=== PATIENT | female | born 1950 | race African-American/Black ===

== ENCOUNTER 2019-04-18 20:00 | Inpatient (IN) | payer MEDICARE, MEDICAID ==
--- NOTE | 2019-04-18 20:39 | RAD ---
EXAM: Chest one view: HISTORY: Chest pain COMPARISON: None FINDINGS: Mild increased bronchovascular markings bilaterally. Heart size: Within normal limits. Lungs: Clear of acute process. No evidence for pneumonia, pleural effusion, acute edema, or pneumothorax, or other significant acute process. IMPRESSION: No significant acute intrathoracic disease.
[2019-04-18 20:59] LABS: #Eosinphils 0.3 thou/uL (0.0-0.7); #Lymphocytes 1.5 thou/uL (1.20-3.40); #Monocytes 0.6 thou/uL (0.11-0.59); #Neutrophils 5.5 thou/uL (1.40-6.50); %Basophils 0.4 % (0.0-1.0); %Eosinophils 3.8 % (0.0-10.0); %Lymphocytes 18.6 % (21.0-51.0); %Monocytes 7.6 % (0.0-10.0); %Neutrophils 69.6 % (42.0-75.0); Hemoglobin 12.3 g/dL (12.0-16.0); Mean Corpuscular HGB CONC 31.3 g/dL (32.0-36.0); Mean Corpuscular Hemoglobin 25.3 pg (27.0-31.0); Platelet Count 247 thou/uL (130-400); RBC Distribution Width 15.9 % (11.5-14.5); Red Blood Cell (RBC) Count 4.86 mill/uL (4.20-5.40); White Blood Cell (WBC) Count 7.8 thou/uL (4.8-10.8)
[2019-04-18] MEDS ORDERED: Acetaminophen 325 MG TAB PO PRN (23:34)
[2019-04-18] MEDS ORDERED: Ondansetron PF 4 MG/2 ML Vial IVP PRN (23:34)
[2019-04-18] MEDS ORDERED: Ondansetron ODT 4 MG TAB SL PRN (23:34)
[2019-04-19] VITALS: BMI 24.3
[2019-04-19 02:29] LABS: Troponin I Less than 0.010 ng/mL (< 0.028)
[2019-04-19] MEDS ORDERED: Acetaminophen 650 MG Suppository PR PRN (03:05)
[2019-04-19] MEDS ORDERED: Lidocaine 2% Viscous Solution 10 ML, Aluminum & Magnesium Hydroxide 30 ML SSW SCH (03:45)
--- NOTE | 2019-04-19 04:24 | HP ---
CHIEF COMPLAINT: Epigastric pain. HISTORY OF PRESENT ILLNESS: Ms. Gee is a pleasant 68-year-old woman with history of hypertension, who presents after developing epigastric discomfort around 3 p.m. yesterday afternoon. The patient states she was talking on the phone when it happened and she rates it an 8/10 in severity, described as a burning and cramping sensation in the epigastric region. It started to move up into her chest and states this has happened before with her reflux. She then experience some discomfort in her back. Denies any nausea or vomiting. She called EMS and was instructed to take aspirin at home. Once EMS arrived, she states nothing additional was given, but as she was driven to the emergency department, her pain began to ease. Shortly after arriving in the ER, her pain resolved fully on its own. It has recurred since then, but she states it has been only in the epigastric region and not as severe. Currently, her discomfort is a 1/10. She reports having normal bowel movements and last moved her bowels this morning. No constipation, melena, or diarrhea. She denies any recent fevers, chills, or sweats. No shortness of breath. She reports having a chronic occasional cough due to history of smoking. Denies any hemoptysis or sputum. Reports feeling well in herself in recent days. REVIEW OF SYSTEMS: She denies having any headaches or dizziness. No diaphoresis. Denies any urinary complaints such as dysuria or hematuria. No skin changes. All other review of systems apart from those mentioned above in HPI are negative. PAST MEDICAL HISTORY: 1. Hypertension. 2. GERD. PAST SURGICAL HISTORY: None. SOCIAL HISTORY: The patient denies any current tobacco use. She smoked previously. She denied any alcohol use or illicit drug use. ALLERGIES: NO KNOWN DRUG ALLERGIES. CURRENT MEDICATIONS: 1. Amlodipine. 2. Sertraline. PHYSICAL EXAMINATION: GENERAL: The patient appears well developed, well nourished, and is resting comfortably in bed. VITAL SIGNS: Temperature 97.6, pulse 94, respirations 18, O2 saturation 93% on room air, blood pressure 149/80. HEENT: Normocephalic and atraumatic. Pupils are equal, round, reactive to light. Sclerae without icterus. Oropharynx is clear. NECK: Supple without lymphadenopathy. LUNGS: Clear to auscultation bilaterally without wheezes, rales, or rhonchi. CARDIAC: Regular rate and rhythm without audible murmurs, rubs, or gallops. No chest wall tenderness. ABDOMEN: Epigastric discomfort with palpation and upon palpation of the lower abdomen, she feels discomfort in the epigastric region. Abdomen is nondistended. Normoactive bowel sounds present. No guarding or rigidity. No renal angle tenderness. EXTREMITIES: No lower leg swelling or edema. NEUROLOGIC: Alert and oriented x3. SKIN: Without rash or jaundice. LABORATORY DATA: White blood count 7.8, hemoglobin 12.3, hematocrit 39.3, platelets 247. CK 66. Troponin negative x2. BNP 11.4. IMAGING DATA: Chest x-ray, 04/18/2019, no significant acute intrathoracic disease. Mild increased bronchovascular markings bilaterally. IMPRESSION AND PLAN: Ms. Gee is a 68-year-old woman, who is being referred for management of the following. 1. Epigastric pain. The patient with tenderness on examination of the epigastric region. She states she has had issues with reflux in the past. We will obtain LFTs as well as a lipase. The patient with minimal discomfort at this present time, which she rates at 1/10 in severity. We will give her a GI cocktail and start her on Protonix. Troponins were done and negative x2. Awaiting third troponin. BNP normal. EKG done in the emergency department showed sinus tachycardia with a heart rate of 104. Heart rate has settled since then. 2. Hypertension. Resume home medications. Monitor blood pressure. 3. Deep venous thrombosis prophylaxis with mechanical SCDs. 4. Code status full. Her surrogate decision maker is her daughter, Elsi Gee. The patient's case was discussed with Dr. Hernandez, who agrees with plan of care as described above. Job ID: [id number] [facility]
[2019-04-19 05:48] LABS: ALT (SGPT) 89 U/L (8-55); AST (SGOT) 160 U/L (5-34); Albumin 4.1 g/dL (3.4-4.8); Alkaline Phosphatase 183 U/L (40-150); Anion Gap 14 mmol/L (10-20); BUN (Urea Nitrogen) 11 mg/dL (9.8-20.1); Bilirubin, Total 0.6 mg/dL (0.2-1.2); Calc. Creatinine Clearance 67 mL/min (70-130); Calcium 10.4 mg/dL (7.8-10.44); Carbon Dioxide 24 mmol/L (23-31); Chloride 103 mmol/L (98-107); Estimated GFR-MDRD 83; Glucose 99 mg/dL (80-115); Lipase 22 U/L (8-78); Potassium 3.9 mmol/L (3.5-5.1); Protein, Total 8.1 g/dL (6.0-8.3); Sodium 137 mmol/L (136-145); Troponin I 0.016 ng/mL (< 0.028)
[2019-04-19] MEDS ORDERED: Morphine 2 MG/ML SYRINGE SLOW IVP SCH (06:30)
--- NOTE | 2019-04-19 08:32 | ULT ---
ULTRASOUND ABDOMEN COMPLETE: DATE: 04/19/2019. TMIE: 7:22 a.m. HISTORY: A 68-year-old female with epigastric abdominal pain. FINDINGS: Liver: Diffuse dilation of intrahepatic biliary tree. No hepatomegaly. Hepatic parenchymal echogen[place] within normal limits. Gallbladder: A normal gallbladder is not visualized. Instead, there is an irregularly shaped hyperec hoic structure located between the left inferolateral edge of the liver and the dilated common duct, producing strong acoustic shadowing. It is uncertain whether this represents bowel gas within duoden um or a calcified neoplastic tumor mass. Common duct: 12 mm. Spleen: No splenomegaly. Pancreas: Nonspecific sonographic appearance. Kidneys: No hydronephrosis. Abdominal aorta: No aneurysm. Inferior vena cava: Unremarkable where visualized. IMPRESSION: 1. Significant dilation of the biliary tree, including common bile duct (12 mm), suggestive of obstr uction of the common bile duct. 2. A normal gallbladder is not visualized. 3. Recommend further evaluation beginning with CT of the abdomen (preferably with IV contrast unless contraindicated) to rule out malignant neoplasm. SEBAS Ibarra POS: KAM
[2019-04-19] MEDS: Amlodipine 10 MG TAB PO SCH (09:27)
--- NOTE | 2019-04-19 12:23 | CT ---
CT ABDOMEN AND PELVIS WITH IV CONTRAST 04/19/2019 CLINICAL INFORMATION: Epigastric abdominal pain and elevated liver function tests. Blurry duct dilatation on ultrasound exa m. COMPARISON: Ultrasound abdomen on 04/19/2019 Technique: Multiple contiguous axial CT images are obtained through the abdomen and pelvis with IV contrast. Cor onal reformatted images are provided. FINDINGS: Lower Chest: There is linear bibasilar atelectasis and or scarring. Vessels: Mild vascular calcifications are seen in the infrarenal abdominal aorta. The abdominal aorta is normal in caliber. Abdomen: Portal vein:Patent Gallbladder: There is soft tissue density and calcifications in the expected location of the gallblad miladis. This may be related to a decompressed and contracted gallbladder with gallbladder calculi. However, follow-up evaluation is recommended. If the patient does have history of prior cholecystecto my, mass with associated calcifications in this region is a differential consideration. Liver: There is intra and extrahepatic biliary ductal dilatation with a 3 mm calculus seen within the distal common duct related to choledocholithiasis. Spleen: within normal limits. Pancreas: within normal limits. Adrenals: within normal limits. Kidneys: Subcentimeter too small to characterize hypodense lesions are seen in each kidney. Bowel: Normal caliber. Appendix: Short in length but normal in caliber. Peritoneum: No ascites or free air; no fluid collection. Mesentery and Retroperitoneum: No enlarged mesenteric or retroperitoneal lymph nodes. Abdominal Wall: There is herniation of fat posterior to the level of the left kidney with herniation of fat into the posterolateral lateral abdominal wall at the level of the left kidney. Pelvis: Reproductive Organs: There is a prominent calcified mass within the uterus related to calcified uteri ne fibroid. Pelvis within normal limits. Bladder: Decompressed. Bones: Degenerative changes are seen in the lower lumbar spine. There is osteoarthritis involving the right hip. IMPRESSION: 1. Choledocholithiasis with an approximately 3 mm calculus in the distal common duct with resultant i ntra and extrahepatic biliary ductal dilatation. 2. Soft tissue density and calcifications in the expected location of the gallbladder. This may repre sent a completely contracted gallbladder filled with gallbladder calculi. Follow-up evaluation is recommended to exclude possibility of a small mass and calcifications. 3. Herniation of fat posterior to the level of the left kidney. 4. Subcentimeter too small to characterize hypodense lesions in each kidney. 5. Calcified uterine fibroid.
[2019-04-19] MEDS: Lactated Ringer's 1,000 ML IV SCH (14:52)
--- NOTE | 2019-04-19 15:13 | PRG ---
DATE OF SERVICE: 04/19/2019 SUBJECTIVE: Ms. Asha Gee is a very pleasant 68-year-old female with past medical history significant for hypertension, who presented to the emergency department with complaints of epigastric pain radiating to the back and chest. CT scan this morning revealed choledocholithiasis with resultant intra and extrahepatic biliary ductal dilatation. The patient continues to complain of some abdominal pain overnight. She denies any nausea or vomiting. She denies any chest pain or shortness of breath. OBJECTIVE: VITAL SIGNS: Blood pressure 119/62, pulse 88, O2 saturation is 98% on room air, and temperature 98.1. GENERAL: The patient is a well-appearing female, resting comfortably in bed, in no acute distress. HEENT: Head is atraumatic and normocephalic. Mucous membranes are moist. NECK: Supple. Trachea is midline. No JVD. No carotid bruits. CV: S1 and S2. Regular rate and rhythm. No appreciable murmurs, rubs, or gallops. LUNGS: Regular respiratory rate and pattern. Clear to auscultation bilaterally. ABDOMEN: Positive bowel sounds. Positive Stapleton's sign. Positive epigastric tenderness. No guarding. EXTREMITIES: No edema. +2 DP pulses bilaterally. SKIN: Warm and dry. No rashes. LABORATORY DATA: Sodium 137, potassium 3.9, chloride 103, BUN 11, creatinine 0.82, glucose 99, total bilirubin 0.6, AST 160, ALT 89, alkaline phosphatase 183. Troponin is negative x3. ASSESSMENT: 1. Abdominal pain and elevated LFTs, presumed secondary to choledocholithiasis. 2. Hypertension. 3. History of gastroesophageal reflux disease. PLAN: The patient has had some continued abdominal pain overnight. Plan is for consultation with both GI and General Surgery. We will continue gentle IV fluid resuscitation and keep the patient n.p.o. for now. Care of this patient has been discussed in detail with Dr. Penn who agrees with the above. Job ID: [id number]
--- NOTE | 2019-04-19 23:06 | CON ---
DATE OF CONSULTATION: 04/19/2019 HISTORY OF PRESENT ILLNESS: Ms. Gee is a pleasant 68-year-old female, who was at home last night and an episode when she began to develop symptoms of reflux and heartburn, which she has intermittently, but this was much worse. It went up into her chest and took her breath away. She in fact even had a cold chill. She was worried she was having a heart attack, so she called EMS and they arrived, started on oxygen, gave her aspirin and brought to the emergency room. She also had some pain in her epigastric region. She had no prior cardiac history. She was admitted to telemetry for chest pain to rule out TX, this was on Friday. It recurred while she was here, but it was only in the epigastric region and she was tender there. Ultimately, she had an ultrasound early this morning at 3, which showed dilation of biliary tree including a 12 mm bile duct and gallbladder was not seen, although there was an irregular irregularly shaped hyperechoic structure between the left inferior edge of the liver in the dilated bile duct with strong acoustic shadowing. The liver tests were mildly elevated. The bilirubin was normal. A CT scan was then ordered, the CAT scan was performed this morning around 9:30 that showed soft tissue density and calcification to expect at the location of the gallbladder. The radiologist felt it was possibly related to decompressed contracted gallbladder with gallstones. The bile duct showed a 3 mm calculus in the distal common bile duct, felt to be related to choledocholithiasis. I was consulted this afternoon to see the patient. Presently, she states she is having no overt pain. She has not eaten all day and she wonders she is going to get to do that. PAST MEDICAL HISTORY: Hypertension and reflux. PAST SURGICAL HISTORY: None. She denies any surgery, denies having cholecystectomy in the past. SOCIAL HISTORY: She smoked about half pack per day. Actually, she stopped smoking some time back. She does not drink or use drugs. ALLERGIES: NONE KNOWN. MEDICATIONS: 1. Amlodipine. 2. Sertraline. FAMILY HISTORY: Negative for malignancies. REVIEW OF SYSTEMS: Negative for dysphagia, odynophagia, melena, hematochezia, or hematemesis. She has had no weight loss. She denies any pain like this ever in the past, although she has had some reflux in the past. She has had a good appetite. GI symptoms she has had, which she describes as reflux. She denies any history of MIs or cardiac disease. She denies history of diabetes. She has no dysuria, frequency, or urgency. She denies any pruritus, rashes, jaundice, or dark urine. PRESENT MEDICATIONS: Here, 1. Tylenol p.r.n. 2. Amlodipine LR at 100. 3. P.r.n. morphine. 4. Protonix 40 p.o. daily. 5. Sertraline. PHYSICAL EXAMINATION: GENERAL: The patient is resting comfortably, temperature is 98.6, pulse is 86. She has been afebrile since admission. Blood pressure 126/71. GENERAL: She is resting comfortably. She has no distress. Oropharynx without lesions. NECK: Supple without adenopathy. LUNGS: Clear. HEART: Regular rhythm without clicks or murmurs. ABDOMEN: Soft with no tenderness in the epigastrium. No rebound, or guarding. There is no Stapleton's sign. There is no adenopathy. EXTREMITIES: No clubbing, cyanosis, or edema. SKIN: Without rash or lesions. She is alert, oriented to person, place and time. LABORATORY STUDIES: Labs today showed an AST of 160, ALT of 89, alkaline phosphatase of 183, bilirubin of 0.6, lipase of 22. Troponins were all negative. Yesterday, white count was 7.9, hemoglobin was 12.3, and platelet count was 247. ASSESSMENT: The patient is a 68-year-old with history of hypertension, hyperlipidemia, prior smoking history, who came to the emergency room thinking that she has had a myocardial infarction, she was ruled out for that. The pain resolved and recurred more in the epigastrium. She had mildly elevated liver enzymes, but normal bilirubin. An ultrasound was obtained, which showed soft tissue density and calcifications in the region of where the gallbladder would expect to be. CAT scan showed the same and a possible stone in the bile duct. With this picture, it looks like her chest pain was actually probably more biliary in origin. She has dilated biliary tree. She has no signs of sepsis or cholangitis. She does have a long history of reflux, but this may in retrospect been biliary colic. The gallbladder appearance is very atypical. There is ductal dilatation above and below the region of the gallbladder and what appears to be a small stone in the distal bile duct. I have discussed with the patient the possible need for cholecystectomy, but with the stone in the bile duct, she would need an endoscopic retrograde cholangiopancreatography to clear the bile duct first. Leaving the stone in place would put her at risk for cholangitis or pancreatitis and if it was to be removed surgically at the time of laparoscopic cholecystectomy, it would probably require an open incision. The risks, benefits, and possible complications of endoscopic retrograde cholangiopancreatography including perforation, bleeding risk, medication aspiration and pancreatitis were explained to the patient as well as the measures we take to reduce that risk. She understands and wished to proceed. I think that if her liver function tests remain elevated as they are, we would recommend proceeding with endoscopic retrograde cholangiopancreatography before laparoscopic cholecystic based on the abnormal and atypical appearance of the gallbladder. She has no symptoms to suggest malignancy, but this is always a concern with an atypical appearing gallbladder in an elderly female. Job ID: [id number]
[2019-04-20] MEDS: Lactated Ringer's 1,000 ML IV SCH ×3 (02:07→19:27)
[2019-04-20 06:28] LABS: #Eosinphils 0.2 thou/uL (0.0-0.7); #Lymphocytes 1.5 thou/uL (1.20-3.40); #Monocytes 0.7 thou/uL (0.11-0.59); #Neutrophils 2.7 thou/uL (1.40-6.50); %Basophils 0.7 % (0.0-1.0); %Eosinophils 4.1 % (0.0-10.0); %Lymphocytes 29.1 % (21.0-51.0); %Monocytes 13.4 % (0.0-10.0); %Neutrophils 52.8 % (42.0-75.0); Hemoglobin 11.3 g/dL (12.0-16.0); Mean Corpuscular HGB CONC 31.1 g/dL (32.0-36.0); Mean Corpuscular Hemoglobin 25.2 pg (27.0-31.0); Mean Corpuscular Volume 81.3 fL (78.0-98.0); Mean Platelet Volume 7.9 fL (7.4-10.4); Platelet Count 221 thou/uL (130-400); RBC Distribution Width 15.7 % (11.5-14.5); Red Blood Cell (RBC) Count 4.49 mill/uL (4.20-5.40); White Blood Cell (WBC) Count 5.1 thou/uL (4.8-10.8)
[2019-04-20 07:15] LABS: ALT (SGPT) 236 U/L (8-55); AST (SGOT) 167 U/L (5-34); Albumin 3.7 g/dL (3.4-4.8); Alkaline Phosphatase 292 U/L (40-150); Anion Gap 14 mmol/L (10-20); BUN (Urea Nitrogen) 6 mg/dL (9.8-20.1); Calc. Creatinine Clearance 73 mL/min (70-130); Calcium 9.8 mg/dL (7.8-10.44); Carbon Dioxide 23 mmol/L (23-31); Chloride 105 mmol/L (98-107); Estimated GFR-MDRD Greater than 90; Globulin 3.5 g/dL (2.4-3.5); Glucose 91 mg/dL (80-115); Lipase 23 U/L (8-78); Potassium 3.7 mmol/L (3.5-5.1); Protein, Total 7.2 g/dL (6.0-8.3); Sodium 138 mmol/L (136-145)
[2019-04-20] MEDS ORDERED: Artificial Tears 18 DROP/0.9 ML EA EYE PRN (07:18)
[2019-04-20] MEDS ORDERED: Ondansetron ODT 4 MG TAB PO PRN (07:18)
[2019-04-20] MEDS ORDERED: Zolpidem Tartrate 5 MG TAB PO PRN (07:18)
[2019-04-20] MEDS ORDERED: Diabetic Tussin 200 MG/10 ML UDCUP PO PRN (07:18)
[2019-04-20] MEDS ORDERED: Loperamide HCl 2 MG CAP PO PRN (07:18)
[2019-04-20] MEDS ORDERED: hydrALAZINE 20 MG/ML VIAL SLOW IVP PRN (07:18)
[2019-04-20] MEDS ORDERED: Ondansetron PF 4 MG/2 ML Vial IVP PRN (07:18)
[2019-04-20] MEDS ORDERED: HYDROcodone/Acetaminophen 5/325 mg Tablet PO PRN (07:18)
[2019-04-20] MEDS ORDERED: Senokot S 8.6-50 MG TAB PO PRN (07:18)
[2019-04-20] MEDS ORDERED: Sodium Chloride 0.65% Nasal 44 ML BOT EA NARE PRN (07:18)
[2019-04-20] MEDS ORDERED: Loratadine 10 MG TAB PO PRN (07:18)
[2019-04-20] MEDS ORDERED: Cepastat Lozenges 1 LOZ PO PRN (07:18)
[2019-04-20] MEDS ORDERED: Acetaminophen 500 MG TAB PO PRN (07:18)
[2019-04-20] MEDS ORDERED: Calcium Carbonate 500 MG ChewTAB PO PRN (07:18)
[2019-04-20] MEDS ORDERED: Bisacodyl 10 MG SUPP PR PRN (07:18)
[2019-04-20] MEDS ORDERED: Morphine 2 MG/ML SYRINGE SLOW IVP PRN (07:35)
[2019-04-20] MEDS: Amlodipine 10 MG TAB PO SCH (08:56)
[2019-04-20] MEDS ORDERED: Indomethacin 50 MG SUPP PR SCH (10:30)
[2019-04-20] MEDS ORDERED: Lidocaine 1% PF 5 ML VIAL ONE (11:10)
[2019-04-20] MEDS ORDERED: Succinylcholine Chloride 20 MG/ML 10 ml SYRINGE FS ONE (11:10)
[2019-04-20] MEDS ORDERED: PROPOFOL 200 MG/20 ML VIAL ONE (11:10)
[2019-04-20] MEDS ORDERED: ePHEDrine 50 MG/ML VIAL ONE (11:10)
[2019-04-20] MEDS ORDERED: Rocuronium Bromide 10 MG/ML (10ML VIAL) ONE (11:10)
[2019-04-20] MEDS ORDERED: Levofloxacin 500 mg/D5W 100 ml Premix Bag ONE (11:32)
[2019-04-20] MEDS ORDERED: Iothalamate Meglumine 60% 50 ML VIAL FS ONE (11:33)
[2019-04-20] MEDS ORDERED: Indomethacin 50 MG SUPP ONE (11:40)
[2019-04-20] MEDS ORDERED: Fentanyl 100 MCG/2 ML VIAL ONE (11:44)
--- NOTE | 2019-04-20 12:48 | PDOC.PN ---
- Subjective Encounter Start Date: 04/20/19 Encounter Start Time: 10:20 Patient seen and examined. No new complaints. No overnight events - Objective Resuscitation Status - Order Detail: 04/19/19 03:05 Resuscitation Status Routine Co-Sign Provider: Resuscitation Status: FULL: Full Resuscitation MAR Reviewed: Yes Vital Signs & Weight: Vital Signs (12 hours) Temp Pulse Resp BP Pulse Ox 04/20/19 08:56 98 04/20/19 07:10 98.2 F 86 18 124/74 98 04/20/19 03:39 98.8 F 84 18 129/79 92 L Weight Weight 146 lb 3.2 oz I&O: 04/19/19 04/20/19 04/21/19 06:59 06:59 06:59 Intake Total 240 2406 Output Total 900 2000 Balance -660 406 Result Diagrams: 04/20/19 05:51 04/20/19 05:51 Phys Exam - Physical Examination Constitutional: NAD HEENT: PERRLA, moist MMs, sclera anicteric Neck: no JVD, supple Respiratory: no wheezing, no rales, no rhonchi Cardiovascular: RRR, no significant murmur, no rub Gastrointestinal: soft, non-tender, no distention, positive bowel sounds Musculoskeletal: no edema, pulses present Neurological: non-focal, normal sensation, moves all 4 limbs Lymphatic: no nodes Psychiatric: normal affect, A&O x 3 Skin: no rash, normal turgor Dx/Plan (1) Abnormal LFTs Code(s): R94.5 - ABNORMAL RESULTS OF LIVER FUNCTION STUDIES Status: Acute Comment: due to choledocholithiasis (2) Choledocholithiasis Code(s): K80.50 - CALCULUS OF BILE DUCT W/O CHOLANGITIS OR CHOLECYST W/O OBST Status: Acute (3) Epigastric abdominal pain Code(s): R10.13 - EPIGASTRIC PAIN Status: Acute Comment: due to choledocholithiasis (4) Anxiety and depression Code(s): F41.9 - ANXIETY DISORDER, UNSPECIFIED; F32.9 - MAJOR DEPRESSIVE DISORDER, SINGLE EPISODE, UNSPECIFIED Status: Chronic (5) Cholelithiases Code(s): K80.20 - CALCULUS OF GALLBLADDER W/O CHOLECYSTITIS W/O OBSTRUCTION Status: Chronic (6) Hypertension Code(s): I10 - ESSENTIAL (PRIMARY) HYPERTENSION Status: Chronic - Plan cont current plan of care, plan discussed w/ family * today ERCP * medication reviewed as below * symptomatic treatment * discussed with family * GI following. Review of Systems - Review of Systems ENT: negative: Ear Pain, Ear Discharge, Nose Pain, Nose Discharge, Nose Congestion, Mouth Pain, Mouth Swelling, Throat Pain, Throat Swelling, Other Respiratory: negative: Cough, Dry, Shortness of Breath, Hemoptysis, SOB with Excertion, Pleuritic Pain, Sputum, Wheezing Cardiovascular: negative: chest pain, palpitations, orthopnea, paroxysmal nocturnal dyspnea, edema, light headedness, other Gastrointestinal: negative: Nausea, Vomiting, Abdominal Pain, Diarrhea, Constipation, Melena, Hematochezia, Other Genitourinary: negative: Dysuria, Frequency, Incontinence, Hematuria, Retention , Other Musculoskeletal: negative: Neck Pain, Shoulder Pain, Arm Pain, Back Pain, Hand Pain, Leg Pain, Foot Pain, Other - Medications/Allergies Allergies/Adverse Reactions: Allergies Allergy/AdvReac Type Severity Reaction Status Date / Time No Known Drug Allergies Allergy Verified 04/18/19 23:51 Medications: Current Medications Acetaminophen (Tylenol) 650 mg PO Q6H PRN PRN Reason: Mild Pain (1-3) Hydrocodone Bitart/Acetaminophen ([place] 5/325) 1 tab PO Q4H PRN PRN Reason: Moderate Pain (4-6) Amlodipine Besylate (Norvasc) 10 mg PO DAILY [facility] [place] Last Admin: 04/20/19 08:56 Dose: 10 mg Artificial Tears (Tears Naturale) 2 drop EA EYE PRN PRN PRN Reason: Dry Eyes Bisacodyl (Dulcolax) 10 mg [place] DAILYPRN PRN PRN Reason: Constipation Calcium Carbonate (Tums) 1,000 mg PO Q4H PRN PRN Reason: Heartburn or Indigestion Guaifenesin (Robitussin Sf) 200 mg PO Q4H PRN PRN Reason: Cough Hydralazine HCl (Apresoline) 10 mg SLOW IVP Q4H PRN PRN Reason: SBP > 180 and HR < 70 Lactated Ringer's (Lactated Ringer's) 1,000 mls @ 100 mls/hr IV .Q10H [facility] [place] Last Admin: 04/20/19 02:07 Dose: 1,000 mls Indomethacin (Indocin) 100 mg [place] ONCALL-OR ONE Stop: 04/20/19 10:31 Loperamide HCl (Imodium) 2 mg PO PRN PRN PRN Reason: Diarrhea/Loose Stools Loratadine (Claritin) 10 mg PO DAILYPRN PRN PRN Reason: Sinus Symptoms Morphine Sulfate (Morphine) 2 mg SLOW IVP Q4H PRN PRN Reason: Pain Ondansetron HCl (Zofran Odt) 4 mg PO Q6H PRN PRN Reason: Nausea/Vomiting Ondansetron HCl (Zofran) 4 mg IVP Q6H PRN PRN Reason: Nausea/Vomiting Pantoprazole Sodium (Protonix) 40 mg PO DAILY [facility] [place] Last Admin: 04/20/19 08:56 Dose: 40 mg Senna/Docusate Sodium (Senokot S) 2 tab PO BID PRN PRN Reason: Constipation Sertraline HCl (Zoloft) 25 mg PO DAILY [facility] [place] Last Admin: 04/20/19 08:56 Dose: 25 mg Sodium Chloride (Flush - Normal Saline) 10 ml IVF Q12HR PRN PRN Reason: Saline Flush Last Admin: 04/19/19 09:28 Dose: 10 ml Sodium Chloride (Flush - Normal Saline) 10 ml IVF PRN PRN PRN Reason: Saline Flush Sodium Chloride ([place]arter Nasal [place] 0.65%) 0 ml EA NARE QIDPRN PRN PRN Reason: Nasal Congestion Throat Lozenges (Cepastat Lozenges) 1 jennifer PO Q2H PRN PRN Reason: Sore Throat Zolpidem Tartrate (Ambien) 5 mg PO HSPRN PRN PRN Reason: Insomnia
[2019-04-20] MEDS ORDERED: Promethazine HCl 25 MG/ML VIAL IM PRN (12:55)
[2019-04-20] MEDS ORDERED: Promethazine HCl 25 MG/ML VIAL SLOW IVP PRN (12:55)
[2019-04-20] MEDS ORDERED: Ondansetron HCl/PF 4 MG/2 ML Vial IVP PRN (12:55)
--- NOTE | 2019-04-20 13:09 | RAD ---
XR ERCP History: Fluoroscopy for endoscopic views Comparison: CT abdomen and pelvis prior day Findings: 3 spot fluoroscopic images were obtained. There is a filling defect distal common bile duct which is removed after a balloon sweep. Impression: Fluoroscopy for endoscopic use.
[2019-04-20] MEDS: Piperacillin/Tazobactam 3.375 GM in Sodium Chloride 0.9% 100 ML IVPB SCH (17:43)
--- NOTE | 2019-04-20 18:11 | OP ---
DATE OF PROCEDURE: 04/20/2019 PROCEDURE PERFORMED: Endoscopic retrograde cholangiopancreatography with sphincterotomy and removal of foreign body. INDICATION FOR PROCEDURE: Choledocholithiasis. DESCRIPTION OF PROCEDURE: After the risks and benefits of the procedure were explained to the patient including risks of bleeding, infection, perforation, reactions to anesthesia, aspiration, post-ERCP pancreatitis, and/or pain, informed consent was obtained. The patient was then taken to the endoscopy suite, where general anesthesia was administered with endotracheal tube intubation via Anesthesia support. Once the patient was intubated and sedated, she was then maneuvered into the prone position in preparation for the ERCP. Then, using a standard duodenoscope, the scope was introduced into the mouth with intubation of the esophagus, stomach, and the proximal small intestines with the findings listed below. The patient tolerated the procedure well with no immediate perioperative complications. Upon conclusion of the procedure, all equipment was removed from the patient. She was transferred to PACU in satisfactory condition. FINDINGS: EGD FINDINGS: 1. Normal-appearing mucosa was seen in the proximal, mid, and distal esophagus along with the stomach and proximal small intestines via the limited views during the EGD portion of this examination. There was no evidence of erosions, ulcerations, mass, lesions, or active/recent bleeding in any of these areas observed (albeit limited visualization via the duodenoscope). ERCP FINDINGS: 1. The ampulla was easily identified within the second portion of the duodenum and was normal in appearance. Using a 5 mm sphincterotome, the ampulla was then successfully cannulated with a guidewire placed into the common bile duct and ultimately the intrahepatic tree. A cholangiogram was then performed showing a 4 mm filling defect within the distal common bile duct consistent with retained stone. Good filling of both the intrahepatic tree and the common bile duct was observed. However, the cystic duct and gallbladder did not fill with contrast. Then, using the sphincterotome, a sphincterotomy was then performed with good hemostasis upon completion of this maneuver. The sphincterotome was then exchanged for a biliary balloon using exchange technique over guidewire with a 12 to 15 mm balloon advanced into the common bile duct which measured approximately 12 mm in diameter. With successive sweeps with the 12 mm balloon, a large black pigmented stone was successfully extracted from the distal common bile duct. Further sweeps of the common bile duct were unsuccessful at retrieving any additional stones or debris. There was some mild oozing of blood at the site of the ampulla with extraction of the stone, but this stopped upon direct visualization during the course of this procedure. An occlusion cholangiogram was then performed with withdrawal of the balloon with good visualization of the common bile duct and no additional filling defects seen. All equipment was then removed from the patient and the patient was transferred to PACU in satisfactory condition. IMPRESSION: Choledocholithiasis, status post sphincterotomy and successful removal of a black pigmented stone measuring around 4 mm in size. RECOMMENDATIONS: 1. We would continue the patient on antibiotics for at least the next 24 hours for possible infection of the post-ERCP period. 2. We would monitor the patient clinically for signs of post ERCP pancreatitis. 3. We will advance the patient's diet to a full liquid diet today, but consider laparoscopic cholecystectomy during this hospitalization. 4. I will consult General Surgery Service for evaluation for possible laparoscopic cholecystectomy. We will continue to follow. Please call with any questions. Job ID: [id number]
[2019-04-21] MEDS: Piperacillin/Tazobactam 3.375 GM in Sodium Chloride 0.9% 100 ML IVPB SCH ×5 (00:03→23:50)
[2019-04-21] MEDS: Lactated Ringer's 1,000 ML IV SCH ×2 (04:17→16:30)
[2019-04-21 06:25] LABS: #Lymphocytes 1.8 thou/uL (1.20-3.40); #Monocytes 0.6 thou/uL (0.11-0.59); #Neutrophils 4.5 thou/uL (1.40-6.50); %Basophils 0.4 % (0.0-1.0); %Eosinophils 0.4 % (0.0-10.0); %Lymphocytes 25.6 % (21.0-51.0); %Neutrophils 65.6 % (42.0-75.0); Hemoglobin 10.6 g/dL (12.0-16.0); Mean Corpuscular HGB CONC 29.8 g/dL (32.0-36.0); Mean Corpuscular Hemoglobin 24.2 pg (27.0-31.0); Mean Corpuscular Volume 81.4 fL (78.0-98.0); Mean Platelet Volume 7.9 fL (7.4-10.4); Platelet Count 226 thou/uL (130-400); RBC Distribution Width 15.8 % (11.5-14.5); Red Blood Cell (RBC) Count 4.39 mill/uL (4.20-5.40); White Blood Cell (WBC) Count 6.9 thou/uL (4.8-10.8)
[2019-04-21 06:41] LABS: ALT (SGPT) 150 U/L (8-55); AST (SGOT) 55 U/L (5-34); Albumin 3.7 g/dL (3.4-4.8); Alkaline Phosphatase 256 U/L (40-150); Anion Gap 11 mmol/L (10-20); BUN (Urea Nitrogen) 8 mg/dL (9.8-20.1); Bilirubin, Total 0.5 mg/dL (0.2-1.2); Calc. Creatinine Clearance 66 mL/min (70-130); Calcium 9.6 mg/dL (7.8-10.44); Carbon Dioxide 26 mmol/L (23-31); Chloride 107 mmol/L (98-107); Estimated GFR-MDRD 81; Globulin 3.3 g/dL (2.4-3.5); Glucose 107 mg/dL (80-115); Lipase 22 U/L (8-78); Potassium 3.5 mmol/L (3.5-5.1); Sodium 140 mmol/L (136-145)
--- NOTE | 2019-04-21 08:24 | CON ---
DATE OF CONSULTATION: 04/20/2019 REASON FOR CONSULTATION: Elevated LFTs and abdominal pain. HISTORY OF PRESENT ILLNESS: Ms. Gee is a 68-year-old female who was having abdominal pain at home. Abdominal pain got worse, she reports she had cold chills. She was admitted to telemetry for chest pain to rule out HI that occurred while she was here and it was only epigastric pain. CAT scan was performed and that shows soft tissue density and calcifications in expected location of the gallbladder. The radiologist felt this is possibly related to decompressed contracted gallbladder with gallstone. The bile duct showed 3 mm calculus in the distal common bile duct, felt to be related to cholelithiasis. PAST MEDICAL HISTORY: Hypertension and reflux. PAST SURGICAL HISTORY: None. SOCIAL HISTORY: Smokes 1 pack for 3 days. Drinks socially. ALLERGIES: UNKNOWN. MEDICATIONS: Sertraline. FAMILY HISTORY: Noncontributory. REVIEW OF SYSTEMS: Noncontributory except for H and P. PHYSICAL EXAMINATION: GENERAL: The patient is resting comfortably, lying in bed, in acute respiratory distress. HEENT: Noncontributory. LUNGS: Clear bilaterally. HEART: Regular rate and rhythm. ABDOMEN: Soft with no tenderness. No rebound or guarding. No Stapleton's sign. EXTREMITIES: Noncontributory. SKIN: With no rash or lesion. LABORATORY STUDIES: White blood count is 5.1, hemoglobin 11.3. Chemistry; electrolytes stable. Sodium 138, potassium 3.7. Kidney function is normal. Creatinine 0.75. Elevated LFTs; AST from 160 to 167, alkaline phosphatase is increased from 183 to 292, ALT from 89 to 236. Total bilirubin is normal. Lipase is normal, 23. ASSESSMENT: Abdominal pain, biliary bile duct is dilated on CT scan, elevated LFTs. PLAN: The patient is going to have ERCP and prepare for surgery. Follow up LFT and lipase Job ID: [id number] [facility]
[2019-04-21] MEDS: Amlodipine 10 MG TAB PO SCH (08:46)
--- NOTE | 2019-04-21 11:35 | PDOC.PN ---
- Subjective Encounter Start Date: 04/21/19 Encounter Start Time: 10:10 Patient seen and examined. No new complaints. No overnight events - Objective Resuscitation Status - Order Detail: 04/19/19 03:05 Resuscitation Status Routine Co-Sign Provider: Resuscitation Status: FULL: Full Resuscitation MAR Reviewed: Yes Vital Signs & Weight: Vital Signs (12 hours) Temp Pulse Resp BP BP Pulse Ox 04/21/19 08:46 67 129/72 04/21/19 08:00 97.9 F 67 18 129/72 93 L 04/21/19 03:58 98.1 F 88 18 109/71 91 L 04/21/19 00:00 98.1 F 74 18 121/70 91 L Weight Weight 148 lb 5 oz I&O: 04/20/19 04/21/19 04/22/19 06:59 06:59 06:59 Intake Total 2406 240 Output Total 1999 Balance 406 240 Result Diagrams: 04/21/19 06:07 04/21/19 06:07 Phys Exam - Physical Examination Constitutional: NAD HEENT: PERRLA, moist MMs, sclera anicteric Neck: no JVD, supple Respiratory: no wheezing, no rales, no rhonchi Cardiovascular: RRR, no significant murmur, no rub Gastrointestinal: soft, non-tender, no distention, positive bowel sounds Musculoskeletal: no edema, pulses present Neurological: non-focal, normal sensation, moves all 4 limbs Lymphatic: no nodes Psychiatric: normal affect, A&O x 3 Skin: no rash, normal turgor Dx/Plan (1) Abnormal LFTs Code(s): R94.5 - ABNORMAL RESULTS OF LIVER FUNCTION STUDIES Status: Acute Comment: due to choledocholithiasis (2) Choledocholithiasis Code(s): K80.50 - CALCULUS OF BILE DUCT W/O CHOLANGITIS OR CHOLECYST W/O OBST Status: Acute (3) Epigastric abdominal pain Code(s): R10.13 - EPIGASTRIC PAIN Status: Acute Comment: due to choledocholithiasis (4) Anxiety and depression Code(s): F41.9 - ANXIETY DISORDER, UNSPECIFIED; F32.9 - MAJOR DEPRESSIVE DISORDER, SINGLE EPISODE, UNSPECIFIED Status: Chronic (5) Cholelithiases Code(s): K80.20 - CALCULUS OF GALLBLADDER W/O CHOLECYSTITIS W/O OBSTRUCTION Status: Chronic (6) Hypertension Code(s): I10 - ESSENTIAL (PRIMARY) HYPERTENSION Status: Chronic - Plan cont current plan of care * s/p ERCP * general surgery consulted for lap geno * repeat labs tomorrow * medication reviewed as below * symptomatic treatment. Review of Systems - Review of Systems ENT: negative: Ear Pain, Ear Discharge, Nose Pain, Nose Discharge, Nose Congestion, Mouth Pain, Mouth Swelling, Throat Pain, Throat Swelling, Other Respiratory: negative: Cough, Dry, Shortness of Breath, Hemoptysis, SOB with Excertion, Pleuritic Pain, Sputum, Wheezing Cardiovascular: negative: chest pain, palpitations, orthopnea, paroxysmal nocturnal dyspnea, edema, light headedness, other Gastrointestinal: negative: Nausea, Vomiting, Abdominal Pain, Diarrhea, Constipation, Melena, Hematochezia, Other Genitourinary: negative: Dysuria, Frequency, Incontinence, Hematuria, Retention , Other Musculoskeletal: negative: Neck Pain, Shoulder Pain, Arm Pain, Back Pain, Hand Pain, Leg Pain, Foot Pain, Other - Medications/Allergies Allergies/Adverse Reactions: Allergies Allergy/AdvReac Type Severity Reaction Status Date / Time No Known Drug Allergies Allergy Verified 04/18/19 23:51 Medications: Current Medications Acetaminophen (Tylenol) 650 mg PO Q6H PRN PRN Reason: Mild Pain (1-3) Hydrocodone Bitart/Acetaminophen ([place] 5/325) 1 tab PO Q4H PRN PRN Reason: Moderate Pain (4-6) Amlodipine Besylate (Norvasc) 10 mg PO DAILY [facility] Last Admin: 04/21/19 08:46 Dose: 10 mg Artificial Tears (Tears Naturale) 2 drop EA EYE PRN PRN PRN Reason: Dry Eyes Bisacodyl (Dulcolax) 10 mg [place] DAILYPRN PRN PRN Reason: Constipation Calcium Carbonate (Tums) 1,000 mg PO Q4H PRN PRN Reason: Heartburn or Indigestion Guaifenesin (Robitussin Sf) 200 mg PO Q4H PRN PRN Reason: Cough Hydralazine HCl (Apresoline) 10 mg SLOW IVP Q4H PRN PRN Reason: SBP > 180 and HR < 70 Lactated Ringer's (Lactated Ringer's) 1,000 mls @ 100 mls/hr IV .Q10H [facility] Last Admin: 04/21/19 04:17 Dose: 1,000 mls Piperacillin Sod/Tazobactam (Sod 3.375 gm/ Sodium Chloride) 100 mls @ 200 mls/ hr IVPB Q6HR [facility] Last Admin: 04/21/19 05:25 Dose: 100 mls Loperamide HCl (Imodium) 2 mg PO PRN PRN PRN Reason: Diarrhea/Loose Stools Loratadine (Claritin) 10 mg PO DAILYPRN PRN PRN Reason: Sinus Symptoms Morphine Sulfate (Morphine) 2 mg SLOW IVP Q4H PRN PRN Reason: Pain Ondansetron HCl (Zofran Odt) 4 mg PO Q6H PRN PRN Reason: Nausea/Vomiting Ondansetron HCl (Zofran) 4 mg IVP Q6H PRN PRN Reason: Nausea/Vomiting Pantoprazole Sodium (Protonix) 40 mg PO DAILY [facility] Last Admin: 04/21/19 08:46 Dose: 40 mg Senna/Docusate Sodium (Senokot S) 2 tab PO BID PRN PRN Reason: Constipation Sertraline HCl (Zoloft) 25 mg PO DAILY [facility] Last Admin: 04/21/19 08:46 Dose: 25 mg Sodium Chloride (Flush - Normal Saline) 10 ml IVF Q12HR PRN PRN Reason: Saline Flush Last Admin: 04/19/19 09:28 Dose: 10 ml Sodium Chloride (Flush - Normal Saline) 10 ml IVF PRN PRN PRN Reason: Saline Flush Sodium Chloride ([place] 0.65%) 0 ml EA NARE QIDPRN PRN PRN Reason: Nasal Congestion Throat Lozenges (Cepastat Lozenges) 1 jennifer PO Q2H PRN PRN Reason: Sore Throat Zolpidem Tartrate (Ambien) 5 mg PO HSPRN PRN PRN Reason: Insomnia
--- NOTE | 2019-04-21 18:52 | PRG ---
DATE OF SERVICE: 04/21/2019 SUBJECTIVE: Ms. Gee is doing well. She had ERCP yesterday and stent removed from common bile duct. She is eating. OBJECTIVE: VITAL SIGNS: Temperature is 98, pulse 61, and blood pressure 146/74. ABDOMEN: Soft, nontender. LABORATORY DATA: Hemoglobin is 10.6, platelets were 226. AST and ALT are 150 and 256. Bilirubin 0.5. ASSESSMENT: 1. Choledocholithiasis, resolved. 2. Abnormal appearing gallbladder with calcifications and very shrunken-appearing gallbladder in the right upper quadrant. This could be cholelithiasis with adhesions and scar tissue from chronic gallbladder disease, possibly malignancy is also abnormal appearance, although the patient has no history of weight loss. There is no evidence of adenopathy or free fluid in that region. PLAN: General Surgery seen the patient and plans on taking her gallbladder out tomorrow. We will follow with you. Job ID: [id number]
[2019-04-22] MEDS: Lactated Ringer's 1,000 ML IV SCH ×2 (04:13→12:30)
[2019-04-22] MEDS: Piperacillin/Tazobactam 3.375 GM in Sodium Chloride 0.9% 100 ML IVPB SCH ×4 (06:20→23:51)
[2019-04-22 06:38] LABS: #Eosinphils 0.3 thou/uL (0.0-0.7); #Monocytes 0.5 thou/uL (0.11-0.59); #Neutrophils 2.9 thou/uL (1.40-6.50); %Basophils 0.6 % (0.0-1.0); %Eosinophils 4.7 % (0.0-10.0); %Lymphocytes 43.5 % (21.0-51.0); %Monocytes 7.9 % (0.0-10.0); %Neutrophils 43.3 % (42.0-75.0); Hemoglobin 11.3 g/dL (12.0-16.0); Mean Corpuscular HGB CONC 31.1 g/dL (32.0-36.0); Mean Corpuscular Hemoglobin 25.3 pg (27.0-31.0); Mean Corpuscular Volume 81.3 fL (78.0-98.0); Mean Platelet Volume 8.1 fL (7.4-10.4); Platelet Count 233 thou/uL (130-400); RBC Distribution Width 15.7 % (11.5-14.5); Red Blood Cell (RBC) Count 4.46 mill/uL (4.20-5.40); White Blood Cell (WBC) Count 6.8 thou/uL (4.8-10.8)
[2019-04-22 06:58] LABS: ALT (SGPT) 103 U/L (8-55); AST (SGOT) 29 U/L (5-34); Albumin 3.6 g/dL (3.4-4.8); Alkaline Phosphatase 213 U/L (40-150); Anion Gap 13 mmol/L (10-20); BUN (Urea Nitrogen) 8 mg/dL (9.8-20.1); Bilirubin, Total 0.3 mg/dL (0.2-1.2); Calc. Creatinine Clearance 71 mL/min (70-130); Calcium 9.6 mg/dL (7.8-10.44); Carbon Dioxide 25 mmol/L (23-31); Chloride 107 mmol/L (98-107); Estimated GFR-MDRD 88; Globulin 3.3 g/dL (2.4-3.5); Glucose 88 mg/dL (80-115); Lipase 30 U/L (8-78); Potassium 3.5 mmol/L (3.5-5.1); Protein, Total 6.9 g/dL (6.0-8.3); Sodium 141 mmol/L (136-145)
[2019-04-22] MEDS: Amlodipine 10 MG TAB PO SCH (07:43)
[2019-04-22] MEDS ORDERED: Potassium Chloride 20 MEQ in Sodium Chloride 0.9% 250 ML 250 ML IVPB SCH (10:30)
--- NOTE | 2019-04-22 11:06 | PDOC.PN ---
- Subjective Encounter Start Date: 04/22/19 Encounter Start Time: 09:00 Patient seen and examined. No new complaints. No overnight events - Objective Resuscitation Status - Order Detail: 04/19/19 03:05 Resuscitation Status Routine Co-Sign Provider: Resuscitation Status: FULL: Full Resuscitation MAR Reviewed: Yes Vital Signs & Weight: Vital Signs (12 hours) Temp Pulse Resp BP BP Pulse Ox 04/22/19 07:46 95 04/22/19 07:43 69 119/69 04/22/19 07:30 97.8 F 70 16 119/69 95 04/22/19 04:00 98.1 F 69 16 111/66 92 L 04/22/19 00:00 97.9 F 67 16 118/61 94 L Weight Weight 148 lb 5 oz I&O: 04/21/19 04/22/19 04/23/19 06:59 06:59 06:59 Intake Total 240 1899 Balance 240 1899 Result Diagrams: 04/22/19 05:13 04/22/19 05:13 Phys Exam - Physical Examination Constitutional: NAD HEENT: PERRLA, moist MMs, sclera anicteric Neck: no JVD, supple Respiratory: no wheezing, no rales, no rhonchi Cardiovascular: RRR, no significant murmur, no rub Gastrointestinal: soft, non-tender, no distention, positive bowel sounds Musculoskeletal: no edema, pulses present Neurological: non-focal, normal sensation, moves all 4 limbs Lymphatic: no nodes Psychiatric: normal affect, A&O x 3 Skin: no rash, normal turgor Dx/Plan (1) Abnormal LFTs Code(s): R94.5 - ABNORMAL RESULTS OF LIVER FUNCTION STUDIES Status: Acute Comment: due to choledocholithiasis (2) Choledocholithiasis Code(s): K80.50 - CALCULUS OF BILE DUCT W/O CHOLANGITIS OR CHOLECYST W/O OBST Status: Acute (3) Epigastric abdominal pain Code(s): R10.13 - EPIGASTRIC PAIN Status: Acute Comment: due to choledocholithiasis (4) Anxiety and depression Code(s): F41.9 - ANXIETY DISORDER, UNSPECIFIED; F32.9 - MAJOR DEPRESSIVE DISORDER, SINGLE EPISODE, UNSPECIFIED Status: Chronic (5) Cholelithiases Code(s): K80.20 - CALCULUS OF GALLBLADDER W/O CHOLECYSTITIS W/O OBSTRUCTION Status: Chronic (6) Hypertension Code(s): I10 - ESSENTIAL (PRIMARY) HYPERTENSION Status: Chronic - Plan cont current plan of care, plan discussed w/ family, continue antibiotics * today lap geno * on zosyn as per GI * medication reviewed as below * symptomatic treatment * possible dc tomorrow. Review of Systems - Review of Systems ENT: negative: Ear Pain, Ear Discharge, Nose Pain, Nose Discharge, Nose Congestion, Mouth Pain, Mouth Swelling, Throat Pain, Throat Swelling, Other Respiratory: negative: Cough, Dry, Shortness of Breath, Hemoptysis, SOB with Excertion, Pleuritic Pain, Sputum, Wheezing Cardiovascular: negative: chest pain, palpitations, orthopnea, paroxysmal nocturnal dyspnea, edema, light headedness, other Gastrointestinal: negative: Nausea, Vomiting, Abdominal Pain, Diarrhea, Constipation, Melena, Hematochezia, Other Genitourinary: negative: Dysuria, Frequency, Incontinence, Hematuria, Retention , Other Musculoskeletal: negative: Neck Pain, Shoulder Pain, Arm Pain, Back Pain, Hand Pain, Leg Pain, Foot Pain, Other - Medications/Allergies Allergies/Adverse Reactions: Allergies Allergy/AdvReac Type Severity Reaction Status Date / Time No Known Drug Allergies Allergy Verified 04/18/19 23:51 Medications: Current Medications Acetaminophen (Tylenol) 650 mg PO Q6H PRN PRN Reason: Mild Pain (1-3) Hydrocodone Bitart/Acetaminophen ([place] 5/325) 1 tab PO Q4H PRN PRN Reason: Moderate Pain (4-6) Amlodipine Besylate (Norvasc) 10 mg PO DAILY [facility] Last Admin: 04/22/19 07:43 Dose: 10 mg Artificial Tears (Tears Naturale) 2 drop EA EYE PRN PRN PRN Reason: Dry Eyes Bisacodyl (Dulcolax) 10 mg [place] DAILYPRN PRN PRN Reason: Constipation Calcium Carbonate (Tums) 1,000 mg PO Q4H PRN PRN Reason: Heartburn or Indigestion Guaifenesin (Robitussin Sf) 200 mg PO Q4H PRN PRN Reason: Cough Hydralazine HCl (Apresoline) 10 mg SLOW IVP Q4H PRN PRN Reason: SBP > 180 and HR < 70 Lactated Ringer's (Lactated Ringer's) 1,000 mls @ 100 mls/hr IV .Q10H [facility] Last Admin: 04/22/19 04:13 Dose: 1,000 mls Piperacillin Sod/Tazobactam (Sod 3.375 gm/ Sodium Chloride) 100 mls @ 200 mls/ hr IVPB Q6HR [facility] Last Admin: 04/22/19 06:20 Dose: 100 mls Potassium Chloride 20 meq/ (Sodium Chloride) 260 mls @ 130 mls/hr IVPB NOW [facility] Stop: 04/22/19 16:00 Loperamide HCl (Imodium) 2 mg PO PRN PRN PRN Reason: Diarrhea/Loose Stools Loratadine (Claritin) 10 mg PO DAILYPRN PRN PRN Reason: Sinus Symptoms Morphine Sulfate (Morphine) 2 mg SLOW IVP Q4H PRN PRN Reason: Pain Ondansetron HCl (Zofran Odt) 4 mg PO Q6H PRN PRN Reason: Nausea/Vomiting Ondansetron HCl (Zofran) 4 mg IVP Q6H PRN PRN Reason: Nausea/Vomiting Pantoprazole Sodium (Protonix) 40 mg PO DAILY [facility] Last Admin: 04/22/19 07:43 Dose: 40 mg Senna/Docusate Sodium (Senokot S) 2 tab PO BID PRN PRN Reason: Constipation Sertraline HCl (Zoloft) 25 mg PO DAILY [facility] Last Admin: 04/22/19 07:43 Dose: 25 mg Sodium Chloride (Flush - Normal Saline) 10 ml IVF Q12HR PRN PRN Reason: Saline Flush Last Admin: 04/19/19 09:28 Dose: 10 ml Sodium Chloride (Flush - Normal Saline) 10 ml IVF PRN PRN PRN Reason: Saline Flush Sodium Chloride ([place] Nasal [place] 0.65%) 0 ml EA NARE QIDPRN PRN PRN Reason: Nasal Congestion Throat Lozenges (Cepastat Lozenges) 1 jennifer PO Q2H PRN PRN Reason: Sore Throat Zolpidem Tartrate (Ambien) 5 mg PO HSPRN PRN PRN Reason: Insomnia
--- NOTE | 2019-04-22 11:37 | PQF ---
FRAN Goel, CRISTY PEREA MD [id number] [id number] CLINICAL DOCUMENTATION IMPROVEMENT CLARIFICATION FORM: ICD-10 Updated PLEASE DO AN ADDENDUM TO THE PROGRESS NOTE WITH ANY DOCUMENTATION UPDATES OR ADDITIONS AND CARRY THROUGH TO DC SUMMARY. THANK YOU. DATE: 04-22-19 ATTN: DR. SCHWARTZ Please exercise your independent, professional judgment in responding to the clarification form. Clinical indicators are provided on the bottom of this form for your review Please check appropriate box(s): [ ] Major Depressive Disorder Single Episode - Mild [ ] Major Depressive Disorder Single Episode - Moderate [ ] Major Depressive Disorder Single Episode - Severe [x ] Other diagnosis __unspecified depression [ ] Unable to determine For continuity of documentation, please document condition throughout progress notes and discharge summary. Thank You. CLINICAL INDICATORS - SIGNS / SYMPTOMS / LABS 7-2 (LANA) ANXIETY AND DEPRESSION - MAJOR DEPRESSIVE DISORDER, SINGLE EPISODE, UNSPECIFIED - CHRONIC RISK FACTORS 7-2 ([facility]NA) ANXIETY AND DEPRESSION - MAJOR DEPRESSIVE DISORDER, SINGLE EPISODE, UNSPECIFIED - CHRONIC TREATMENT: MAR - ZOLOFT - 7-1 TO 04-22-19 THANK YOU, SUGEY (This form is maintained as a part of the permanent medical record) 2015 [employer], [email or web address]. All Rights Reserved Sugey Jones RN, BS [email or web address] [facility]
[2019-04-22] MEDS ORDERED: Famotidine/PF 20 mg/2ml Vial ONE (11:44)
[2019-04-22] MEDS ORDERED: Fentanyl 100 MCG/2 ML VIAL ONE (11:44)
[2019-04-22] MEDS ORDERED: Bupivacaine/Epinephrine 0.25% 30 ML VIAL ONE (11:55)
[2019-04-22] MEDS ORDERED: Albumin 5% 500 ML ONE (13:41)
[2019-04-22] MEDS ORDERED: Phenylephrine HCL 10 MG/ML VIAL ONE (13:56)
[2019-04-22] MEDS ORDERED: Propofol 1,000 MG/100 ML VIAL IV PRN (15:39)
[2019-04-22] MEDS ORDERED: Morphine 2 MG/ML SYRINGE SLOW IVP PRN (15:39)
[2019-04-22] MEDS ORDERED: Propofol BOLUS 1,000 MG/100 ML VIAL IV PRN (15:39)
[2019-04-22] MEDS ORDERED: DISCONTINUE PREVIOUS NARCOTIC PAIN MEDICATIONS AND BENZODIAZEPINES FS SCH (15:39)
[2019-04-22] MEDS ORDERED: fentaNYL Citrate/PF 2,000 MCG in Sodium Chloride 0.9% 60 ML IV SCH (15:39)
[2019-04-22] MEDS ORDERED: Fentanyl BOLUS 250 ML IVPB PRN (15:39)
[2019-04-22] MEDS ORDERED: Lorazepam 2 MG/ML VIAL SLOW IVP PRN (15:39)
[2019-04-22] MEDS ORDERED: Ventilator Sedation Protocol 1 EACH FS SCH (15:45)
[2019-04-22] MEDS ORDERED: Ketorolac Tromethamine 30 MG/ML VIAL ONE (15:52)
[2019-04-22] MEDS ORDERED: Dexamethasone 20 MG/5 ML VIAL ONE (15:52)
[2019-04-22] MEDS ORDERED: PHENYLEPHRINE-NS 100 MCG/ML 10 ML SYRINGE ONE (15:52)
[2019-04-22] MEDS ORDERED: PROPOFOL 200 MG/20 ML VIAL ONE (15:52)
[2019-04-22] MEDS ORDERED: ePHEDrine 50 MG/ML VIAL ONE (15:52)
[2019-04-22] MEDS ORDERED: Ondansetron PF 4 MG/2 ML Vial ONE (15:52)
[2019-04-22] MEDS ORDERED: Lidocaine 1% PF 5 ML VIAL ONE (15:52)
[2019-04-22] MEDS ORDERED: Metoclopramide HCl 10 MG/2 ML VIAL ONE (15:52)
[2019-04-22] MEDS ORDERED: Glycopyrrolate 0.2 MG/ML 5 ML SYRINGE ONE (15:52)
[2019-04-22] MEDS ORDERED: Rocuronium Bromide 10 MG/ML (10ML VIAL) ONE (15:52)
--- NOTE | 2019-04-22 15:52 | OP ---
DATE OF PROCEDURE: 04/22/2019 PREOPERATIVE DIAGNOSES: 1. Acute cholecystitis with cholelithiasis. 2. Choledocholithiasis, status post ERCP and common bile duct stone extraction. 3. 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 POSTOPERATIVE DIAGNOSES: 1. Acute on chronic cholecystitis with cholelithiasis. 2. 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 3. Choledocholithiasis, status post ERCP and common bile duct stone extraction. OPERATION PERFORMED: Laparoscopic cholecystectomy. ANESTHESIA: General endotracheal. ESTIMATED BLOOD LOSS: 800 mL. FLUIDS GIVEN: 500 mL of 5% albumin, 1500 mL of crystalloid, and 1 unit of packed red blood cells. INDICATIONS FOR PROCEDURE: A 68-year-old woman, who was admitted with abdominal pain. Clinical radiographic examination was consistent with an acute cholecystitis, cholelithiasis, and choledocholithiasis, for which the patient is postop day #2 status post ERCP with common bile duct stone extraction. The patient is brought to the operating room today for laparoscopic cholecystectomy. Note, the CT scan findings preoperatively were suspicious for gallbladder carcinoma. Findings are consistent with a markedly contracted gallbladder in the usual anatomic location, completely encased by omental adhesions. There is extensive amount of neovascularization around the gallbladder. There is also dense inflammatory fibrosis around the gallbladder itself. DESCRIPTION OF PROCEDURE: An informed consent obtained from the patient and she was brought to the operating room and placed in supine position. Following general anesthesia, abdomen was sterilely prepped and draped in usual fashion. The skin below the umbilicus was infiltrated with 0.25% Marcaine with epinephrine. A small curvilinear infraumbilical incision was made using 10 scalpel. The umbilical stalk was grasped with Kash and elevated. Veress needle was then introduced through this incision and placed in the peritoneal cavity, through which the abdomen was insufflated with 3 L of CO2 gas. Intraabdominal pressure noted at 1 mmHg. Following abdominal insufflation, Veress needle was removed and a 5 mm trocar introduced using a Visiport under laparoscopy. Laparoscopy confirmed proper placement of the port. No injuries to underlying structures. Additional laparoscopy reveals right upper quadrant completely encased by omental adhesions, obscuring the liver. Under direct laparoscopy, a 12 mm epigastric and two 5 mm right lateral subcostal ports were placed after the overlying skin was infiltrated with 0.25% Marcaine with epinephrine and appropriate incision was made. The patient was placed in the reverse Trendelenburg position, rotated to her left. I introduced a [place] dissector with cautery. Using this, I took down omental adhesions to reveal the outer edge of the liver. Further dissection revealed the fundus of the contracted gallbladder in the usual anatomic location. Prestige grasper introduced through the right lateral subcostal port, grasping the fundus of this gallbladder, which was elevated cephalad. Omental adhesions were then taken down from the remainder of the gallbladder. Dense fibrotic inflammatory tissues completely surrounded the gallbladder. These were taken down carefully using [place] dissector with cautery. I then introduced a second Prestige grasper through the right medial subcostal port, grasping the Soo pouch, which was retracted laterally. The cystic duct was carefully dissected free from surrounding structures and divided between clips. Two clips applied proximally, one clip at the junction of the cystic duct and gallbladder. Multiple fairly enlarged blood vessels were noted entering the gallbladder itself. These were individually divided between clips. In one of the maneuvers, the clip came off and we immediately had a large volume blood loss. Once the hemostasis was achieved here, we continued our dissection, identifying the dominant cystic artery, which was dissected from surrounding structures and divided between clips. The remainder of the gallbladder itself was then removed from the liver bed using cautery. The gallbladder fossa was oozing of venous blood. Hemostasis was achieved using 1 x 2 inch piece of Fibrillar. Finding no other pathology, laparoscopy was terminated. Endo suction catheter was used to evacuate the intraabdominal hematoma. Operative site was irrigated with saline. #19 Cleve drain introduced into the subhepatic space and allowed to exit the abdominal cavity through the right lateral subcostal port. The drain was secured to anterior abdominal wall using 2-0 silk suture. The fascia of the epigastric port was closed using 0 Vicryl suture and Endoclosure device under laparoscopy. The abdomen was desufflated and all ports and instruments removed and accounted for. Skin incisions closed using 4-0 Monocryl suture in subcuticular fashion. Dermabond was applied over incisional closure. The patient tolerated the operation without any apparent complication and was returned to recovery room in satisfactory condition. Job ID: [id number]
--- NOTE | 2019-04-22 16:06 | RAD ---
RADIOGRAPH CHEST 1 VIEW: DATE: 04/22/2019 TIME: 10:39 PM HISTORY: 68-year-old female status post intubation COMPARISON: 04/18/2019 FINDINGS: New endotracheal tube distal tip overlies mid thoracic trachea. Mildly increased attenuation at bilat eral lung bases. Mid and upper lung zones are clear. No pneumothorax visualized. Subcutaneous emphysema at right supraclavicular region, and along bilateral chest jackson. No pulmonary edema. IMPRESSION: 1. Subcutaneous emphysema. 2. Intubation.
[2019-04-22] MEDS: Acetaminophen 1,000 MG in Premix Bag 1 BAG IVPB SCH ×2 (16:36→23:50)
[2019-04-22 17:21] LABS: #Basophils 0.1 thou/uL (0.0-0.2); #Lymphocytes 0.7 thou/uL (1.20-3.40); #Monocytes 0.3 thou/uL (0.11-0.59); #Neutrophils 15.1 thou/uL (1.40-6.50); %Basophils 0.5 % (0.0-1.0); %Eosinophils 0.3 % (0.0-10.0); %Lymphocytes 4.3 % (21.0-51.0); %Neutrophils 92.9 % (42.0-75.0); Hemoglobin 11.9 g/dL (12.0-16.0); Mean Corpuscular HGB CONC 32.4 g/dL (32.0-36.0); Mean Corpuscular Hemoglobin 27.2 pg (27.0-31.0); Mean Platelet Volume 8.1 fL (7.4-10.4); Platelet Count 178 thou/uL (130-400); RBC Distribution Width 15.2 % (11.5-14.5); Red Blood Cell (RBC) Count 4.37 mill/uL (4.20-5.40); White Blood Cell (WBC) Count 16.2 thou/uL (4.8-10.8)
[2019-04-22 17:27] LABS: Prothrombin Time 13.6 SEC (12.0-14.7)
[2019-04-22 17:35] LABS: Lactic Acid 2.7 mmol/L (0.5-2.2)
[2019-04-22 17:44] LABS: ALT (SGPT) 125 U/L (8-55); AST (SGOT) 107 U/L (5-34); Albumin 4.2 g/dL (3.4-4.8); Alkaline Phosphatase 193 U/L (40-150); Anion Gap 17 mmol/L (10-20); BUN (Urea Nitrogen) 8 mg/dL (9.8-20.1); Bilirubin, Total 1.3 mg/dL (0.2-1.2); Calc. Creatinine Clearance 65 mL/min (70-130); Calcium 8.5 mg/dL (7.8-10.44); Carbon Dioxide 19 mmol/L (23-31); Chloride 107 mmol/L (98-107); Estimated GFR-MDRD 80; Globulin 3.1 g/dL (2.4-3.5); Glucose 222 mg/dL (80-115); Potassium 3.7 mmol/L (3.5-5.1); Protein, Total 7.3 g/dL (6.0-8.3); Sodium 139 mmol/L (136-145)
[2019-04-22 17:53] LABS: Actual Bicarbonate (HCO3a) 21.5 mEq/L (22-28); Base Excess (BEa) -2.1 mEq/L (-2.0 to +3.0); CO2 Tension 33.2 mmHg (35.0-45.0); Calcium, Ionized 1.04 mmol/L (1.12-1.30); Hemoglobin (Hb) 11.3 g/dL (12.0-16.0); O2 Tension (PaO2) 93.9 mmHg (> 70.0); Potassium - ABG Lab 3.57 mmol/L (3.70-5.30); pH, Arterial 7.43 (7.35-7.45)
[2019-04-22 18:25] LABS: Puncture Site RBRACH
[2019-04-22] MEDS ORDERED: Calcium Chloride 1 GM/10 ML Abboject SYRINGE IVP SCH (18:45)
--- NOTE | 2019-04-22 19:20 | PRG ---
DATE OF SERVICE: 04/22/2019 SUBJECTIVE: Ms. Gee is doing well. Denies any fever, abdominal pain, or shortness of breath. She states she is able to tolerate well regular diet, but she is n.p.o. since yesterday since she is ready to go to the OR for exploratory laparotomy and cholecystectomy today. OBJECTIVE: VITAL SIGNS: Temperature 97, pulse 85, respiratory rate 12, O2 saturation 95 on room air, and blood pressure 113/60. LUNGS: Clear bilaterally. HEART: Regular rate and rhythm. ABDOMEN: Soft and nontender. EXTREMITIES: Neurovascular, intact. No neuro deficits. ASSESSMENT: 1. Choledocholithiasis and cholecystitis, resolved, status post endoscopic retrograde cholangiopancreatography with stone extraction. Gallbladder atrophy. PLAN: The patient is going to the OR for cholecystectomy today. Continue supportive care. Job ID: [id number] MTDD
--- NOTE | 2019-04-22 21:38 | PRG ---
DATE OF SERVICE: 04/22/2019 SUBJECTIVE: Ms. Gee is in the ICU. She had a laparoscopic cholecystectomy today. She did have quite a bit of blood loss and received transfusion. Dr. Martinez who contacted me, he was concerned about possible bile duct injury because of all the work that he had to do to control bleeding. Medications reviewed. OBJECTIVE: VITAL SIGNS: Pulse 97, temperature 97.8, blood pressure 120/70. GENERAL: She is alert and oriented. ABDOMEN: Soft and nontender. ERIN drain is in right upper quadrant with minimal drainage. LABORATORY DATA: At 1713 hours this evening, white count 16.2, hemoglobin is 11.9, platelet count is 178. Electrolytes were normal. was 2.7. Bilirubin 1.3. AST and ALT 107 and 125, alkaline phosphatase 193. The alkaline phosphatase is down from what was previously. ASSESSMENT: Status post laparoscopic cholecystectomy with bleeding complication, she received 3 units of blood. She did develop mild lactic acidosis. I have not seen her vital signs in the emergency room, bump in liver enzymes may be related to relative shock liver. RECOMMENDATIONS: She is staying stable at this point in time. We will follow along with you. If it becomes a concern about bile duct injury, we would consider an ERCP in the next 24-48 hours. Job ID: [id number]
[2019-04-23] MEDS ORDERED: traMADol HCl 50 MG TAB PO PRN ×2 (01:48)
[2019-04-23 03:46] LABS: #Basophils 0.1 thou/uL (0.0-0.2); #Monocytes 0.8 thou/uL (0.11-0.59); #Neutrophils 11.2 thou/uL (1.40-6.50); %Basophils 0.4 % (0.0-1.0); %Eosinophils 0.1 % (0.0-10.0); %Lymphocytes 7.7 % (21.0-51.0); %Neutrophils 85.9 % (42.0-75.0); Hemoglobin 11.6 g/dL (12.0-16.0); Mean Corpuscular HGB CONC 32.9 g/dL (32.0-36.0); Mean Corpuscular Hemoglobin 27.2 pg (27.0-31.0); Mean Corpuscular Volume 82.6 fL (78.0-98.0); Mean Platelet Volume 8.9 fL (7.4-10.4); Platelet Count 172 thou/uL (130-400); RBC Distribution Width 15.5 % (11.5-14.5); Red Blood Cell (RBC) Count 4.26 mill/uL (4.20-5.40)
[2019-04-23 04:01] LABS: Lactic Acid 0.7 mmol/L (0.5-2.2)
[2019-04-23] MEDS: Morphine 4 MG/ML VIAL SLOW IVP PRN ×3 (04:08→21:37)
[2019-04-23 04:24] LABS: ALT (SGPT) 213 U/L (8-55); AST (SGOT) 227 U/L (5-34); Albumin 4.1 g/dL (3.4-4.8); Alkaline Phosphatase 237 U/L (40-150); Anion Gap 15 mmol/L (10-20); BUN (Urea Nitrogen) 6 mg/dL (9.8-20.1); Bilirubin, Total 5.1 mg/dL (0.2-1.2); Calc. Creatinine Clearance 77 mL/min (70-130); Calcium 10.3 mg/dL (7.8-10.44); Carbon Dioxide 22 mmol/L (23-31); Chloride 104 mmol/L (98-107); Estimated GFR-MDRD Greater than 90; Globulin 3.5 g/dL (2.4-3.5); Glucose 121 mg/dL (80-115); Lipase 32 U/L (8-78); Phosphorus 3.9 mg/dL (2.3-4.7); Potassium 4.3 mmol/L (3.5-5.1); Protein, Total 7.6 g/dL (6.0-8.3); Sodium 137 mmol/L (136-145)
[2019-04-23] MEDS: Piperacillin/Tazobactam 3.375 GM in Sodium Chloride 0.9% 100 ML IVPB SCH ×3 (05:25→17:07)
[2019-04-23] MEDS: Acetaminophen 1,000 MG in Premix Bag 1 BAG IVPB SCH ×2 (05:25→11:40)
[2019-04-23] MEDS ORDERED: Amlodipine 10 MG TAB PO SCH (09:00)
--- NOTE | 2019-04-23 10:36 | PRG ---
DATE OF SERVICE: 04/21/2019 SUBJECTIVE: Ms. Gee is a pleasant 68-year-old female with past medical history of hypertension, who presented to the emergency room with complaints of epigastric pain. CT scan revealed choledocholithiasis, biliary duct dilation. The patient went through ERCP procedure. Dr. Warner did a sphincterotomy and successful removal of a black pigmented stone measuring around 4 mm in size. The patient has both procedures uncomplicated. The patient reports no fever. Abdominal pain has resolved. She is able to tolerate a regular diet. OBJECTIVE: VITAL SIGNS: Temperature 98, pulse 71, respiratory rate 15, O2 saturation 96% on room air, and blood pressure 146/74. LUNGS: Clear bilaterally. CARDIAC: Regular rate and rhythm. ABDOMEN: Soft and nondistended. EXTREMITIES: Noncontributory. LABORATORY DATA: White blood cell count 2.5 and hemoglobin 10.6. Creatinine 2.84, AST decreased from 167 to 55 today, ALT from 236 to 156, alkaline phosphatase 292 to 256, and lipase normal. ASSESSMENT: Abdominal pain and choledocholithiasis, post endoscopic retrograde cholangiopancreatography, Gallbladder disease. PLAN: The patient is to continue supportive care. Patient will be going to the OR today for cholecystectomy Job ID: [id number] MTDD
--- NOTE | 2019-04-23 11:03 | PRG ---
DATE OF SERVICE: 04/23/2019 SUBJECTIVE: Ms. Gee is a 68-year-old woman, who is postop day #1, status post laparoscopic cholecystectomy. Surgery was marked with large blood loss. This required a blood transfusion. This morning, the patient is awake and alert. She reports adequate pain control. Her vital signs have remained stable. Urinary output has been adequate. OBJECTIVE: VITAL SIGNS: Current vital signs include blood pressure is 140/81, pulse is 87, respiratory rate is 23, temperature is 98.2 degrees Fahrenheit, and oxygen saturation is 96% on room air. HEENT: Pupils are equal, round, and reactive to light and accommodation. She has no sclerae icterus present. HEART: Reveals regular rate and rhythm. No murmurs or gallops auscultated. LUNGS: Clear to auscultation bilaterally. Her breathing is regular and nonlabored. ABDOMEN: Soft and nondistended with incisional tenderness to palpation. She clearly has no rebound tenderness present. Lisandro-Carson drain returns moderate amount of serosanguineous fluid. NEUROLOGIC: Reveals no focal deficits present. LABORATORY FINDINGS: Today includes a CBC with 13,000 white blood cells and hemoglobin and hematocrit 11.6 and 35.2 respectively. Platelet count is 172,000. Metabolic profile; sodium is 137, potassium is 4.3, chloride is 104, bicarb is 15, BUN is 6, creatinine is 0.72, glucose is 121, magnesium 2.0, and phosphorus is 3.9. Total bilirubin is elevated at 5.1, AST and ALT are also elevated at 227 and 213 respectively. Alkaline phosphatase is 237. IMPRESSION: 1. Status post laparoscopic cholecystectomy. 2. Elevated LFTs. PLAN: We will ask Gastroenterology to evaluate the patient for ERCP today to rule out any potential operative complication. Above findings and plan has been discussed with the patient, who indicates understanding of the information given. I have also discussed with Dr. Luis with Gastroenterology and ERCP is contemplated for this morning. Job ID: [id number]
--- NOTE | 2019-04-23 11:57 | PDOC.PN ---
- Subjective Encounter Start Date: 04/23/19 Encounter Start Time: 10:40 Patient seen and examined. No new complaints. No overnight events - Objective Resuscitation Status - Order Detail: 04/19/19 03:05 Resuscitation Status Routine Co-Sign Provider: Resuscitation Status: FULL: Full Resuscitation MAR Reviewed: Yes Vital Signs & Weight: Vital Signs (12 hours) Temp Pulse Ox 04/23/19 11:00 98.5 F 04/23/19 08:00 95 04/23/19 07:43 95 04/23/19 07:00 98.2 F 04/23/19 05:00 97.7 F 04/23/19 00:00 97.8 F Weight Weight 150 lb 2.157 oz Most Recent Monitor Data Heart Rate from ECG 95 NIBP 140/83 NIBP BP-Mean 102 Respiration from ECG 25 SpO2 94 I&O: 04/22/19 04/23/19 04/24/19 06:59 06:59 06:59 Intake Total 1899 1340 100 Output Total 5717 995 Balance 2021 -6142 -701 Result Diagrams: 04/23/19 03:25 04/23/19 03:25 EKG Reviewed by me: Yes Phys Exam - Physical Examination Constitutional: NAD HEENT: PERRLA, moist MMs, sclera anicteric Neck: no JVD, supple Respiratory: no wheezing, no rales, no rhonchi Cardiovascular: RRR, no significant murmur, no rub Gastrointestinal: soft, non-tender, no distention, positive bowel sounds drain+ Musculoskeletal: no edema, pulses present Neurological: non-focal, normal sensation, moves all 4 limbs Lymphatic: no nodes Psychiatric: normal affect, A&O x 3 Skin: no rash, normal turgor Dx/Plan (1) Abnormal LFTs Code(s): R94.5 - ABNORMAL RESULTS OF LIVER FUNCTION STUDIES Status: Acute Comment: due to choledocholithiasis (2) Choledocholithiasis Code(s): K80.50 - CALCULUS OF BILE DUCT W/O CHOLANGITIS OR CHOLECYST W/O OBST Status: Acute (3) Epigastric abdominal pain Code(s): R10.13 - EPIGASTRIC PAIN Status: Acute Comment: due to choledocholithiasis (4) Anxiety and depression Code(s): F41.9 - ANXIETY DISORDER, UNSPECIFIED; F32.9 - MAJOR DEPRESSIVE DISORDER, SINGLE EPISODE, UNSPECIFIED Status: Chronic (5) Cholelithiases Code(s): K80.20 - CALCULUS OF GALLBLADDER W/O CHOLECYSTITIS W/O OBSTRUCTION Status: Chronic (6) Hypertension Code(s): I10 - ESSENTIAL (PRIMARY) HYPERTENSION Status: Chronic - Plan cont current plan of care * pt is stable, pain control * medication reviewed as below * symptomatic treatment * today ERCP. Review of Systems - Review of Systems ENT: negative: Ear Pain, Ear Discharge, Nose Pain, Nose Discharge, Nose Congestion, Mouth Pain, Mouth Swelling, Throat Pain, Throat Swelling, Other Respiratory: negative: Cough, Dry, Shortness of Breath, Hemoptysis, SOB with Excertion, Pleuritic Pain, Sputum, Wheezing Cardiovascular: negative: chest pain, palpitations, orthopnea, paroxysmal nocturnal dyspnea, edema, light headedness, other Gastrointestinal: negative: Nausea, Vomiting, Abdominal Pain, Diarrhea, Constipation, Melena, Hematochezia, Other Genitourinary: negative: Dysuria, Frequency, Incontinence, Hematuria, Retention , Other Musculoskeletal: negative: Neck Pain, Shoulder Pain, Arm Pain, Back Pain, Hand Pain, Leg Pain, Foot Pain, Other Skin: negative: Rash, Lesions, Chance, Bruising, Other - Medications/Allergies Allergies/Adverse Reactions: Allergies Allergy/AdvReac Type Severity Reaction Status Date / Time No Known Drug Allergies Allergy Verified 04/18/19 23:51 Medications: Current Medications Artificial Tears (Tears Naturale) 2 drop EA EYE PRN PRN PRN Reason: Dry Eyes Bisacodyl (Dulcolax) 10 mg GA DAILYPRN PRN PRN Reason: Constipation Calcium Carbonate (Tums) 1,000 mg PO Q4H PRN PRN Reason: Heartburn or Indigestion Guaifenesin (Robitussin Sf) 200 mg PO Q4H PRN PRN Reason: Cough Hydralazine HCl (Apresoline) 10 mg SLOW IVP Q4H PRN PRN Reason: SBP > 180 and HR < 70 Piperacillin Sod/Tazobactam (Sod 3.375 gm/ Sodium Chloride) 100 mls @ 200 mls/ hr IVPB Q6HR TARIQ Last Admin: 04/23/19 11:41 Dose: 100 mls Acetaminophen 1,000 mg/ Device 100 mls @ 400 mls/hr IVPB Q6HR [facility] Stop: 04/23/19 12:14 Last Admin: 04/23/19 11:40 Dose: 100 mls Loperamide HCl (Imodium) 2 mg PO PRN PRN PRN Reason: Diarrhea/Loose Stools Loratadine (Claritin) 10 mg PO DAILYPRN PRN PRN Reason: Sinus Symptoms Morphine Sulfate (Morphine) 2 mg SLOW IVP Q2H PRN PRN Reason: Breakthrough Pain Last Admin: 04/23/19 04:08 Dose: 2 mg Discontinue Previous Narcotic Pain Medications And Benzodiazepines 1 each FS .ONE [facility] Stop: 05/22/19 15:39 Ondansetron HCl (Zofran Odt) 4 mg PO Q6H PRN PRN Reason: Nausea/Vomiting Ondansetron HCl (Zofran) 4 mg IVP Q6H PRN PRN Reason: Nausea/Vomiting Senna/Docusate Sodium (Senokot S) 2 tab PO BID PRN PRN Reason: Constipation Sertraline HCl (Zoloft) 25 mg PO DAILY [facility] Last Admin: 04/22/19 07:43 Dose: 25 mg Sodium Chloride (Flush - Normal Saline) 10 ml IVF Q12HR PRN PRN Reason: Saline Flush Last Admin: 04/19/19 09:28 Dose: 10 ml Sodium Chloride (Gunter Nasal [place] 0.65%) 0 ml EA NARE QIDPRN PRN PRN Reason: Nasal Congestion Sodium Chloride (Flush - Normal Saline) 10 ml IVF PRN PRN PRN Reason: Saline Flush Throat Lozenges (Cepastat Lozenges) 1 jennifer PO Q2H PRN PRN Reason: Sore Throat Tramadol HCl (Ultram) 100 mg PO Q6H PRN PRN Reason: Moderate to Severe Pain (6-10) Tramadol HCl (Ultram) 50 mg PO Q6H PRN PRN Reason: Moderate Pain (4-6) Last Admin: 04/23/19 02:34 Dose: 50 mg
[2019-04-23] MEDS ORDERED: Sodium Chloride 0.9% (PF) 10 ML VIAL FS PRN (13:35)
[2019-04-23] MEDS ORDERED: Indomethacin 50 MG SUPP ONE (14:17)
[2019-04-23] MEDS ORDERED: Iothalamate Meglumine 60% 50 ML VIAL FS ONE (14:17)
[2019-04-23] MEDS ORDERED: Rocuronium Bromide 10 MG/ML (10ML VIAL) ONE (15:16)
[2019-04-23] MEDS ORDERED: PROPOFOL 200 MG/20 ML VIAL ONE (15:16)
[2019-04-23] MEDS ORDERED: Succinylcholine Chloride 20 MG/ML 10 ml SYRINGE FS ONE (15:16)
--- NOTE | 2019-04-23 15:17 | RAD ---
Exam: ERCP: HISTORY: Follow-up intraductal calculus and postoperative cholecystectomy changes. FINDINGS: 3 Portable fluoroscopic spot views are presented for interpretation. These demonstrate cannulization of the common duct with evidence for intervening post surgical changes since the prior study of 04/20/2019. No evidence for common duct contrast injection. IMPRESSION: No evidence for common duct injection. Cannulization of the common bile duct.
--- NOTE | 2019-04-23 16:23 | DIS ---
DATE OF ADMISSION: 04/19/2019 DATE OF DISCHARGE: 04/23/2019 ADMITTING PHYSICIAN: Venita Horne PA-C DISCHARGING PHYSICIAN: Chip Martinez DO CONSULTANTS: Niko Luis MD with Gastroenterology. ADMITTING DIAGNOSES: 1. Cholecystitis with cholelithiasis. 2. Choledocholithiasis. DIAGNOSES ON DISCHARGE: 1. Cholecystitis with cholelithiasis. 2. Choledocholithiasis. PROCEDURES PERFORMED: 1. Endoscopic retrograde cholangiopancreatography on 04/20/[address] Niko Luis. 2. Laparoscopic cholecystectomy on 04/22/[address] Martinez. 3. Repeat endoscopic retrograde cholangiopancreatography on 04/23/[address] Niko Luis. Please see separate dictations for procedures notes. HISTORY/HOSPITAL COURSE: Ms. Gee is a 68-year-old woman, presented with epigastric to right upper quadrant abdominal pain. Clinical radiographic examination was consistent with acute cholecystitis with cholelithiasis and choledocholithiasis. The patient underwent ERCP with common bile duct stone obstruction on 04/20/2019. She then underwent laparoscopic cholecystectomy on 04/22/2019. Intraoperatively was complicated by large volume hemorrhage requiring transfusion of a total of 2 units packed red blood cells and 2 units of fresh frozen plasma. Day #1, she is awake and alert, reporting adequate pain control. She has remained hemodynamically stable since postop. Lisandro-Carson drain returns serosanguineous fluid. Laboratory studies today; however, revealed rising LFTs, specifically total bilirubin, which is now elevated at 5.1 and AST and ALT 227 and 213 respectively. ERCP was performed today, which is suggestive of common bile duct injury. The patient has been transferred to [facility] to the service of Dr. Isaias Elliott. I spoke with Dr. Elliott on the telephone and he is accepting transfer. She has been transferred by ground in stable condition. Job ID: [id number]
--- NOTE | 2019-04-23 18:47 | OP ---
DATE OF PROCEDURE: 04/23/2019 PROCEDURE PERFORMED: Endoscopic retrograde cholangiopancreatography. PREPROCEDURE DIAGNOSES: 1. Previous ERCP 48 hours ago with removal of pigmented common bile duct stone, otherwise normal ERCP. 2. Status post laparoscopic cholecystectomy with complications of bleeding postoperative, now with a bump in LFTs. General Surgery is concerned about possible common bile duct injury, and they have asked me to repeat the ERCP. ANESTHESIA: General endotracheal anesthesia. ANTIBIOTICS: None, as the patient is already on them. POSTOPERATIVE DIAGNOSES: There is nonfilling of the bile duct above the distal 1/3 of the common bile duct. No filling defects were noted. However, there does appear to be clips in this area across the path of the biliary tree. Attempts to go beyond this area with guidewire and ERCP catheter were unsuccessful. Findings conveyed to Dr. Martinez and films reviewed with him, who is from general surgeon in the room with the patient. RECOMMENDATIONS: The patient can be transferred to a tertiary facility for consultation for possible hepaticojejunostomy. Dr. Martinez has made those plans. PROCEDURE IN DETAIL: The patient was informed of the risks, benefits, and possible complications of procedure including perforation, reaction to medication, aspiration, injury to bile duct. Informed consent was obtained from the patient, brought to endoscopy suite, where she was sedated and then intubated, placed in a prone position on fluoroscopy table. A supervisor loading film was obtained showing clips in normal place for the cystic duct, but also a few scattered clips in the areas in the right upper quadrant. The bile duct was cannulated with a balloon catheter. Injection was performed showing no filling defects dye in the biliary tree and image on magnification, there it looked like two clips across this area passing the bile duct. Attempts to pass beyond with a glidewire were unsuccessful. This does not appear to be a cystic duct stump very distal aspect of the biliary tree at the ampulla. There was no other duct that filled. Films reviewed with Dr. Martinez. The scope was then removed. The patient tolerated the procedure well, she was brought to recovery room in stable condition. Job ID: [id number]
[2019-04-23] MEDS ORDERED: Sodium Chloride 0.9% 1,000 ML IV SCH (19:45)
[2019-04-23 20:39] VITALS: BP 145/77; TEMP 98.8
--- NOTE | 2019-04-24 08:25 | DIS ---
DATE OF ADMISSION: 04/19/2019 DATE OF DISCHARGE: 04/23/2019 DISCHARGE DISPOSITION: Home. PRIMARY DISCHARGE DIAGNOSES: Abnormal liver function test due to choledocholithiasis, status post endoscopic retrograde cholangiopancreatography; epigastric abdominal pain due to choledocholithiasis, status post laparoscopic cholecystectomy. SECONDARY DISCHARGE DIAGNOSES: Hypertension, anxiety, depression, cholelithiasis. PRIMARY PROCEDURE/OPERATION: Endoscopic retrograde cholangiopancreatography x2, laparoscopic cholecystectomy, endotracheal intubation and mechanical ventilatory support. RADIOLOGICAL INVESTIGATION: Chest x-ray, abdomen and pelvis CT scan, abdominal ultrasound, ERCP x-ray, chest x-ray, and repeat ERCP x-ray. SIGNIFICANT LABORATORY DATA: Hemoglobin 11.6. INR 1.0, creatinine 0.72. DISCHARGE MEDICATIONS: 1. Amlodipine 10 mg daily. 2. Zoloft 25 mg daily. 3. Protonix 40 mg daily. CONTRAINDICATION: None. CODE STATUS: Full code. INPATIENT ANALYTICAL RESEARCH PROGRAM MANAGER: Dr. Luis and Dr. Martinez. TEST RESULTS PENDING ON DISCHARGE: pathology report. DISCHARGE PLAN: Posthospital, the patient will follow up with Dr. Martinez, Dr. Luis, and primary care physician. HOSPITAL COURSE: A 68-year-old female who was admitted under Sound Team, admitted by Venita Horne, please see her H and P for further details. The patient was having epigastric abdominal pain. She was found with choledocholithiasis. She was admitted to Telemetry Service. She was given empiric antibiotic therapy. She underwent ERCP with sphincterotomy. Subsequently, Dr. Martinez did a laparoscopic cholecystectomy. Postprocedure, the patient required short-term mechanical ventilatory support. The patient had abnormal LFT after a laparoscopic cholecystectomy and that is why the patient required repeat ERCP. After repeat ERCP, the patient was discharged by Dr. Martinez. I was not notified. Please see his discharge summary for more detail as well. The patient was seen and examined on the day of discharge. Job ID: [id number]
[2019-04-24] MEDS ORDERED: Pantoprazole 40 MG VIAL IVP SCH (09:00)
--- NOTE | 2019-04-24 20:28 | EKG ---
Test Reason : CHEST PAIN Blood Pressure : / mmHG Vent. Rate : 104 BPM Atrial Rate : 104 BPM P-R Int : 124 ms QRS Dur : 070 ms QT Int : 338 ms P-R-T Axes : 062 031 053 degrees QTc Int : 444 ms Sinus tachycardia Septal infarct , age undetermined Abnormal ECG Confirmed by SHANNA ALCALA D.O. ([id number]), online editor ERROL VANN ([id number]) on 04/24/2019 8:27:46 PM Referred By: CARI Confirmed By:SHANNA ALCALA D.O.
== END 2019-04-23 22:25 | disposition short-term general hospital (02) | DRG 418 ==
LOC: ERS 20:00 → 2NO 23:32 → OBSVTOIN 04-19 11:06 → T4-B 04-20 17:36 → CCU 04-22 15:14 → SURG A 04-23 16:20
PROVIDERS: ADMIT Internal Medicine; ATTEND Internal Medicine
PROC: 0FC98ZZ Extirpation of Matter from Common Bile Duct, Via Natural or Artificial Opening Endoscopic (ICD-10-PCS; 2019-04-20)
PROC: BF131ZZ Fluoroscopy of Gallbladder and Bile Ducts using Low Osmolar Contrast (ICD-10-PCS; 2019-04-20)
PROC: 0FT44ZZ Resection of Gallbladder, Percutaneous Endoscopic Approach (ICD-10-PCS; principal; 2019-04-22)
PROC: 0FJB8ZZ Inspection of Hepatobiliary Duct, Via Natural or Artificial Opening Endoscopic (ICD-10-PCS; 2019-04-23)
DX: K80.60 Calculus of gallbladder and bile duct with cholecystitis, unspecified, without obstruction (principal); E87.2 Acidosis; K80.44 Calculus of bile duct with chronic cholecystitis without obstruction; I10 Essential (primary) hypertension; F41.9 Anxiety disorder, unspecified; K21.9 Gastro-esophageal reflux disease without esophagitis; F32.9 Major depressive disorder, single episode, unspecified; F17.210 Nicotine dependence, cigarettes, uncomplicated; I25.2 Old myocardial infarction
CPT/HCPCS: 36415; 36430; 71045; 74177; 74330; 76700; 80053; 82550; 82805; 83605; 83690; 83735; 83880; 84100; 84484; 85025; 85610; 85730; 86850; 86900; 86901; 88304; 88341; 88342; 93005; 94002; J0131; J1100; J1885; J1956; J2001; J2270; J2370; J2405; J2543; J2704; J2765; J3010; J3480; J3490; J7050; P9016; P9045; P9059; S0028